=== PATIENT | male | born 1940 | race Caucasian/White ===

== ENCOUNTER 2018-04-30 08:22 | Day surgery (SDC) | payer OTHER ==
--- NOTE | 2018-04-29 12:04 | RAD REPORT ---
EXAM DESCRIPTION: RAD - Chest Pa And Lat (2 Views) - 04/29/2018 11:58 am CLINICAL HISTORY: preop Chest pain. COMPARISON: Chest Single View dated 10/03/2016; CHEST PA AND LAT 2 VIEW dated 07/03/2011; CHEST SINGL E VIEW dated 10/07/2002 FINDINGS: The lungs are clear. The heart is normal in size. No displaced fractures. IMPRESSION: No acute or concerning finding suspected.
[2018-04-29 12:08] LABS: Absolute Lymphocytes (CBC) 0.9 K/uL (0.7-4.9); Absolute Monocytes 0.6 K/uL (0.1-1.3); Absolute Neutrophil 3.8 K/uL (1.8-8.0); Basophils % 1.3 % (0-1.3); Eosinophils % 3.1 % (0-4.4); Hematocrit 36.8 % (39.6-49.0); Lymphocytes % 16.6 % (15.3-44.8); MCH 31.2 pg (27.0-35.0); MCV 91.5 fL (80-100); MPV 8.3 fL (7.6-11.3); Monocytes % 10.9 % (3.3-12.3); RBC Red Blood Cell Count 4.02 M/uL (4.33-5.43)
[2018-04-29 12:09] LABS: Protime INR 0.93
--- NOTE | 2018-04-29 12:12 | EKG ---
Test Date: 2018-04-29 Test Time: 11:40:40 Boom Supervisor: RAFAT MEASUREMENT RESULTS: Intervals: Rate: 51 AK: 156 QRSD: 82 QT: 460 QTc: 423 [place]: P: 65 AK: 156 QRS: -44 T: 52 INTERPRETIVE STATEMENTS: Sinus bradycardia Left axis deviation Abnormal ECG Compared to ECG 10/03/2016 07:20:56 Left-axis deviation now present Left anterior fascicular block no longer present Electronically Signed On 04-29-18 12:11:42 CDT by Roman Bowles
[2018-04-29 19:31] LABS: Potassium 4.6 mmol/L (3.5-5.1)
[~2018-04-30 08:22] MED LIST: ATROPINE SULF 1 MG/10 ML SYR IV ONE; HEPA 1000U/500MLS 0 UNIT/0 ML BAG IV ONE; HEPARIN 5000 UNIT/ML 1 ML VIAL ONE; LIDOCAINE 1% MPF 2 ML AMPULE ONE; NA CHLORIDE 0.9% 0 ML ONE; NICARDIPINE HCL 25 MG/10 ML IV ONE; NITROGLYCERIN/D5W 0 MG/0 ML BTL IV ONE
[2018-04-30] MEDS ORDERED: NA CHLORIDE 0.9% 500 ML ONE (09:08)
[2018-04-30] MEDS ORDERED: HEPA 1000U/500MLS 1,000 UNIT/500 ML BAG IV ONE (10:21)
[2018-04-30] MEDS ORDERED: ATROPINE SULF 1 MG/10 ML SYR IV ONE (10:30)
[2018-04-30] MEDS ORDERED: FENTANYL CITR 100 MCG/2 ML ONE (10:30)
[2018-04-30] MEDS ORDERED: MIDAZOLAM HCL 2 MG/2 ML INJ ONE ×2 (10:30→10:34)
[2018-04-30] MEDS ORDERED: NA CHLORIDE 0.9% 0 ML ONE (10:30)
[2018-04-30] MEDS ORDERED: LIDOCAINE 1% MPF 5 ML VIAL ONE (11:30)
--- NOTE | 2018-04-30 21:49 | OP ---
Date of Procedure: 04/30/2018 Surgeon: Perfecto Oneil MD Admitted to my service as an outpatient on 04/30/2018. Reason For Admission: Outpatient heart catheterization. Indication: Positive stress test and history of coronary artery disease. History Of Present Illness: Mr. Galan is a 77-year-old white male. He is a patient of Dr. Agarwal. He has had an OM and RCA stent many years ago. He was having atypical chest pain and positive stres s test in January. I recommended he has a heart catheterization if he has symptoms. He has scheduled it for today. Procedure In Detail: He was brought to the electronic lab technician, given 4 mg of Versed and 50 of fentanyl for sed ation. The right common femoral artery was accessed with a 6-Czech sheath. This was closed with an Angio-Seal. The coronaries were cannulated using 6-Czech Heather catheter, left and right respecti vely. The right coronary artery showed a patent RCA stent. The left main injection showed a patent OM stent. He had about a 40-50% proximal LAD stenosis with some diffuse plaquing in the LAD. There were no complications. Blood loss was 5 cc. Postoperative Diagnosis: Moderate coronary artery disease. Plan: Plan is for medical therapy. Operators: Perfecto Oneil M.D. and Lisa Dobson. Total conscious sedation was 30 minutes. PHILIP/RAH Voice ID: [id number] Report ID: [id number]
== END 2018-04-30 13:15 | disposition home or self-care (01) ==
LOC: CCL 08:22
PROC: 4A023N7 Measurement of Cardiac Sampling and Pressure, Left Heart, Percutaneous Approach (ICD-10-PCS; principal; 2018-04-30)
PROC: B211YZZ Fluoroscopy of Multiple Coronary Arteries using Other Contrast (ICD-10-PCS; 2018-04-30)
DX: I25.10 Atherosclerotic heart disease of native coronary artery without angina pectoris (principal); E78.5 Hyperlipidemia, unspecified; Z87.891 Personal history of nicotine dependence
CPT/HCPCS: 36415; 71046; 80048; 85025; 85610; 85730; 93005; 93454; C1760; C1893; J2250 ×2; J3010; J0583; J1644; J2001

== ENCOUNTER 2021-05-19 11:45 | Emergency (ER) | payer OTHER ==
[2021-05-19] MEDS ORDERED: predniSONE 20 MG TAB ONE (12:47)
--- NOTE | 2021-05-19 13:11 | RAD REPORT ---
EXAM DESCRIPTION: RAD - Chest Pa And Lat (2 Views) - 05/19/2021 12:54 pm CLINICAL HISTORY: CONGESTION COMPARISON: Chest Pa And Lat (2 Views) dated 04/29/2018; Chest Single View dated 10/03/2016; CHEST PA AND LAT 2 VIEW dated 07/03/2011; CHEST SINGLE VIEW dated 10/07/2002 FINDINGS: Lines: None. Lungs: New nodular opacities in the right mid lung and right lung base. Emphysema suspected. Pleural: No significant pleural effusions or pneumothorax. Cardiac: The heart size is within normal limits. Bones: No acute fractures. Other: IMPRESSION: Mild new right mid lung and basilar opacities could reflect pneumonia.
--- NOTE | 2021-05-19 13:35 | EDPHYS ---
Physician Documentation [facility] Name: Kavon Galan Age: 80 yrs Sex: Male : 1940 Arrival Date: 05/19/2021 Time: 11:52 Bed 9 Private MD: Mike Agarwal ED Physician Romulo Zafar HPI: 05/19 16:58 This 80 yrs old Male presents to ER via Ambulatory with complaints of covid+. kb 16:58 The patient or guardian reports cough, that is intermittent, described as moderate, kb difficulty breathing. Onset: The symptoms/episode began/occurred 10 day(s) ago. Severity of symptoms: At their worst the symptoms were moderate, in the emergency department the symptoms have improved, moderately. Modifying factors: The symptoms are alleviated by nothing, the symptoms are aggravated by exertion. Associated signs and symptoms: The patient has no apparent associated signs or symptoms. The patient has not experienced similar symptoms in the past. The patient has not recently seen a physician. Patient reports he tested positive for Covid on May 11. Came in today for cough and shortness of breath. States he started taking Zithromax 2 days ago. States he feels like he is getting better.. Historical: - Allergies: 12:15 PENICILLINS; tw2 - Home Meds: 12:15 Zocor Oral [Active]; aspirin 81 mg Oral chew 1 tab once daily [Active]; Aleve 220 mg tw2 Oral cap daily [Active]; - PMHx: 12:15 Myocardial infarction; tw2 - Immunization history:: Adult Immunizations. - Social history:: Smoking status: Patient denies any tobacco usage or history of. ROS: 16:58 Constitutional: Negative for fever, chills, and weight loss. kb 16:58 Respiratory: Positive for cough, dyspnea on exertion, shortness of breath, Negative for hemoptysis, orthopnea, pleurisy, sputum production, wheezing. 16:58 All other systems are negative. Exam: 16:58 Constitutional: This is a well developed, well nourished patient who is awake, alert, kb and in no acute distress. Head/Face: Normocephalic, atraumatic. ENT: Moist Mucous membranes Cardiovascular: Regular rate and rhythm with a normal S1 and S2. No gallops, murmurs, or rubs. No pulse deficits. Respiratory: Respirations even and unlabored. No increased work of breathing, no retractions or nasal flaring. Skin: Warm, dry with normal turgor. Normal color. MS/ Extremity: Pulses equal, no cyanosis. Neurovascular intact. Full, normal range of motion. Neuro: Awake and alert, GCS 15, oriented to person, place, time, and situation. Moves all extremities. Normal gait. Psych: Awake, alert, with orientation to person, place and time. Behavior, mood, and affect are within normal limits. Vital Signs: 12:13 BP 121 / 64; Pulse 78; Resp 22; Temp 98.3(TE); Pulse Ox 93% on R/A; tw2 12:15 Pulse Ox 97% on R/A; tw2 12:50 BP 118 / 59; Pulse 70; Resp 18; Pulse Ox 94% on R/A; Pain 0/10; ld1 12:13 97% RA after sitting in triage room tw2 12:15 at rest tw2 MDM: 12:20 Patient medically screened. kb 16:49 Data reviewed: vital signs, nurses notes. Data interpreted: Pulse oximetry: on room air kb is 94 %. Interpretation: normal. Counseling: I had a detailed discussion with the patient and/or guardian regarding: the historical points, exam findings, and any diagnostic results supporting the discharge/admit diagnosis, radiology results, the need for outpatient follow up, a family practitioner, to return to the emergency department if symptoms worsen or persist or if there are any questions or concerns that arise at home. ED course: Pt will continue prescribed zithromax. Will monitor oxygen at home and return for worsening symptoms. 05/19 12:19 Order name: XRAY Chest Pa And Lat (2 Views); Complete Time: 13:16 tw2 Administered Medications: 12:24 Drug: predniSONE 40 mg Route: PO; ld1 12:24 Follow up: Response: No adverse reaction ld1 Disposition: 05/20 04:44 Co-signature as Attending Physician, Romulo Zafar MD I agree with the assessment and kdr plan of care. Disposition Summary: 05/19/21 13:34 Discharge Ordered Location: Home kb Condition: Stable kb Diagnosis - Pneumonia due to SARS-associated coronavirus kb - Coronavirus infection, unspecified kb Followup: kb - With: Emergency Department - When: As needed - Reason: Worsening of condition Followup: kb - With: Miek Agarwal MD - When: 2 - 3 days - Reason: Recheck today's complaints, Continuance of care, Re-evaluation by your physician Discharge Instructions: - Discharge Summary Sheet kb - COVID-19 kb - COVID-19 Frequently Asked Questions kb - 10 Things You Can Do to Manage Your COVID-19 Symptoms at Home - [facility] kb Forms: - Medication Reconciliation Form kb - Thank You Letter kb - Antibiotic Education kb - Prescription Opioid Use kb Prescriptions: - Prednisone 20 mg Oral Tablet - take 1 tablet by ORAL route once daily for 5 days; 5 tablet; Refills: 0, kb Product Selection Permitted Signatures: Dispatcher [employer] EDMS Chelsey Espana, STAFF [employer] DEFENSE OFFICER-C STAFF AIR DEFENSE OFFICER-Romulo Stein MD MD kdr Wise, Tara RN RN tw2 Saba Mcbride RN RN ld1
--- NOTE | 2021-05-19 13:35 | ER ---
Nurse's Notes [facility] Name: Kavon Galan Age: 80 yrs Sex: Male : 1940 Arrival Date: 05/19/2021 Time: 11:52 Bed 9 Private MD: Mike Agarwal Diagnosis: Pneumonia due to SARS-associated coronavirus;Coronavirus infection, unspecified Presentation: 05/19 12:10 Chief complaint: Patient states: i think i am here because i wasn't responding to the tw2 medicine good enough. they didn't get to him soon enough to get the antibiodies. and in the morning when i get up walk around its low. almost always in the morning it is low. Chief complaint: Spouse and/or significant other states: he is weak and not eating good. i just want to make him get as good as he gets. Coronavirus screen: fatigue, shortness of breath, Client presents with at least one sign or symptom that may indicate coronavirus-19. Standard/surgical mask placed on the client. Provider contacted for isolation considerations. Ebola Screen: Patient denies travel to an Ebola-affected area in the 21 days before illness onset. Initial Sepsis Screen: Does the patient meet any 2 criteria? No. Patient's initial sepsis screen is negative. Does the patient have a suspected source of infection? No. Patient's initial sepsis screen is negative. Risk Assessment: Do you want to hurt yourself or someone else? Patient reports no desire to harm self or others. Note provider MIAH Silva in triage exam room performing assessment. 12:10 Method Of Arrival: Ambulatory tw2 12:10 Acuity: DANIEL 4 tw2 12:15 Onset of symptoms was May 19, 2021. tw2 12:16 Chief complaint: Patient states: started with cough and runny nose since the . tw2 Triage Assessment: 12:15 General: Appears in no apparent distress. slender, well groomed, Behavior is calm, tw2 cooperative, appropriate for age. Pain: Denies pain. Historical: - Allergies: 12:15 PENICILLINS; tw2 - Home Meds: 12:15 Zocor Oral [Active]; aspirin 81 mg Oral chew 1 tab once daily [Active]; Aleve 220 mg tw2 Oral cap daily [Active]; - PMHx: 12:15 Myocardial infarction; tw2 - Immunization history:: Adult Immunizations. - Social history:: Smoking status: Patient denies any tobacco usage or history of. Screenin:17 Abuse screen: Denies threats or abuse. Nutritional screening: No deficits noted. tw2 Tuberculosis screening: No symptoms or risk factors identified. Fall Risk None identified. Assessment: 12:17 Reassessment: provider MIAH Silva in triage exam room at this time performing tw2 assessment. 12:50 General: Appears in no apparent distress. comfortable, Behavior is calm, cooperative, ld1 appropriate for age. 12:50 Pain: Denies pain. Neuro: Level of Consciousness is awake, alert, obeys commands, ld1 Oriented to person, place, time, situation, Appropriate for age. Cardiovascular: Capillary refill < 3 seconds Patient's skin is warm and dry. Rhythm is regular. Respiratory: Airway is patent Respiratory effort is even, unlabored, Respiratory pattern is regular, symmetrical. GI: Abdomen is flat, non-distended. : No signs and/or symptoms were reported regarding the genitourinary system. EENT: No signs and/or symptoms were reported regarding the EENT system. Derm: No signs and/or symptoms reported regarding the dermatologic system. Musculoskeletal: No signs and/or symptoms reported regarding the musculoskeletal system. Vital Signs: 12:13 BP 121 / 64; Pulse 78; Resp 22; Temp 98.3(TE); Pulse Ox 93% on R/A; tw2 12:15 Pulse Ox 97% on R/A; tw2 12:50 BP 118 / 59; Pulse 70; Resp 18; Pulse Ox 94% on R/A; Pain 0/10; ld1 12:13 97% RA after sitting in triage room tw2 12:15 at rest tw2 ED Course: 11:52 Patient arrived in ED. as 11:52 Mike Agarwal MD is Private Physician. as 12:13 Triage completed. tw2 12:15 Arm band placed on. tw2 12:17 Adult w/ patient. tw2 12:20 Chelsey Espana FNP-C is PHCP. kb 12:20 Romulo Zafar MD is Attending Physician. kb 12:50 No provider procedures requiring assistance completed. ld1 12:54 XRAY Chest Pa And Lat (2 Views) In Process Unspecified. EDMS 13:34 Mike Agarwal MD is Referral Physician. kb 13:41 Patient did not have IV access during this emergency room visit. ld1 Administered Medications: 12:24 Drug: predniSONE 40 mg Route: PO; ld1 12:24 Follow up: Response: No adverse reaction ld1 Outcome: 13:34 Discharge ordered by . kb 13:41 Discharged to home ambulatory. ld1 13:41 Condition: stable 13:41 Discharge instructions given to patient, family, Instructed on discharge instructions, follow up and referral plans. medication usage, Demonstrated understanding of instructions, follow-up care, medications. 13:41 Patient left the ED. ld1 Signatures: Dispatcher [employer] EDMS Chelsey Espana, MIAH-C SPECIALIZED LANGUAGE INSTRUCTOR-Amanda Jensen Tara, RN RN tw2 Saba Mcbride RN RN ld1
[2021-05-19 14:00] VITALS: TEMP 98.3
[2021-05-19 14:02] VITALS: BP 118/59; O2SAT 94
== END 2021-05-19 13:41 | disposition home or self-care (01) ==
LOC: ER 11:45
DX: U07.1 COVID-19 (principal); J12.82 Pneumonia due to coronavirus disease 2019; I25.2 Old myocardial infarction; Z79.82 Long term (current) use of aspirin; Z88.0 Allergy status to penicillin
CPT/HCPCS: 71046; 99283; J7512